=== PATIENT | female | born 1955 | race Caucasian/White ===

== ENCOUNTER 2024-01-27 10:07 | Outpatient (AMB) | payer MEDICARE, OTHER, SELFPAY ==
--- NOTE | 2024-01-27 10:25 | A.SPINEOV_ITS ---
Intake Visit Reasons: spinal stenosis Intake Note: Ms. James is here today c/o right sided sciatica pain that radiates down the right leg. Shoe Reconditioner Required: No Allergies No Known Allergies Allergy (Verified 01/27/24 10:35) Assessment & Plan Assessment & Plan (1) Lumbar stenosis with neurogenic claudication: Code(s): M48.062 - Spinal stenosis, lumbar region with neurogenic claudication Category: Medical Plan Dear colleague Thank you for referring Adeola James to the office today with a chief complaint of right leg pain. HPI: This 68-year-old female developed rather acute right-sided back pain radiating down her right leg in beginning of October. The pain radiates into her right buttock down to the outside of her lower leg and top of her foot. The pain is accompanied by tingling and numbness on the top of the foot and a drop foot. The left side is unaffected. In the beginning she was crying from pain but over time the symptoms have slightly improved. She still uses lidocaine patches and Tylenol. The pain is worse in the morning when she has to use a cane to get going. Standing is actually the best position. She was seen by pain management who have treated her symptoms so far medically. She is currently in physical therapy. PMH: Hypertension, hypothyroid (thyroidectomy), asthma Medications: Hydrochlorothiazide, Synthroid, albuterol p.r.n., Breztri Allergies: NKDA Social history: . Nonsmoker. Physical Exam: Pleasant female. Straight leg raise is negative. There is numbness in the L5 dermatome on the right side. There is a grade 3/5 weakness of the dorsiflexors and extensor hallucis longus on the right side. Radiological Studies: MRI done at [facility] on 08/11/2023 shows a mild L4-5 spondylolisthesis and severe L4-5 spinal stenosis. In addition there are multiple sacral cyst. A dynamic lumbar x-ray obtained today shows a grade 1-2 spondylolisthesis which is stable with flexion-extension. Impression/Plan: This 68-year-old female suffering from a right L5 lumbar radiculopathy with numbness and weakness. She denies axial low back pain and the imaging has a low suspicion for significant instability. Therefore I think a right L4-5 laminotomy is the appropriate surgical approach to decompress the L5 nerve root. I do not think that a fusion is indicated at this time. She wants to proceed and she is scheduled for 03/08/2024. Thank you for allowing me to participate in your patients care. total time spent was 50 minutes in counseling ,coordination of plan, personal review of imaging, surgical decision making and subsequent plan Ezekiel James MD, PhD Sp[facility] Trained Neurosurgeon Director, [facility] [place] [facility] Orders: Orders XR lumbar spine 4V min Today M48.062 - Spinal stenosis, lumbar region with neurogenic claudication Coding Level of Care Code New Pt Level 4 (26019) Diagnoses Lumbar stenosis with neurogenic claudication M48.062
== END 2024-01-27 11:29 | disposition home or self-care (01) ==
PROVIDERS: PCP Registered Nurse; Visit Provider Neurological Surgery
DX: M48.062 Spinal stenosis, lumbar region with neurogenic claudication (principal)
CPT/HCPCS: 99204

== ENCOUNTER 2024-01-27 10:07 | Outpatient (REF) | payer MEDICARE, OTHER, SELFPAY ==
--- NOTE | ~2024-01-27 | XR_ITS ---
EXAMINATION: XR LUMBAR SPINE CLINICAL INFORMATION: Spinal stenosis, lumbar region with neurogenic claudication. COMPARISON: None available. TECHNIQUE: AP and lateral views of the lumbar spine were obtained. Lateral views were obtained in flexion, extension, and neutral positions. FINDINGS: There is 5 mm of anterolisthesis of L4 on L5 which does not appreciably changed with flexion and extension. There is 4 mm of anterolisthesis of L5 on S1 also appears unchanged with flexion and extension. There is significant facet arthropathy at L4-L5 and L5-S1. Vertebral body heights are normal. Cwlv-kx-[id number] degenerative disc disease, more notably at L1-L2, L2-L3, and L4-L5. Mild osteoarthritis in the SI joints. Atherosclerotic calcifications in the abdominal aorta and iliac arteries. XR/XR lumbar spine 4V min IMPRESSION: 1. Grade 1 anterolisthesis of L4 on L5 and L5 on S1 with associated facet arthropathy. No appreciable changes in alignment with flexion and extension. 2. Rodm-pw-[id number] multilevel degenerative disc disease. Electronically signed by: Anthony Ho MD 02/20/2024 06:01 PM EDT
== END 2024-01-27 10:08 | disposition home or self-care (01) ==
LOC: HO.HOSX 10:07
PROVIDERS: PCP Registered Nurse; Visit Provider Neurological Surgery
DX: M48.062 Spinal stenosis, lumbar region with neurogenic claudication (principal)
CPT/HCPCS: 72110; 99202

== ENCOUNTER 2024-03-15 09:10 | Day surgery (SDC) | payer MEDICARE, OTHER, SELFPAY ==
[2024-02-29 09:40] VITALS: BMI 26.9
[2024-03-15] MEDS: methocarbamoL 750 MG TABLET PO (09:45)
[2024-03-15] MEDS: Gabapentin 300 MG CAPSULE PO (09:45)
--- NOTE | 2024-03-15 10:35 | MHC.SHP ---
Pre-Procedural Eval Section A - 24 Hr Update-Section A only Date of Service: 03/15/24 The patient is an INPATIENT: No Section B - Complete if H&P > 30 days Chief Complaint: Spinal stenosis, lumbar region with neurogenic Allergies: Allergies Allergy/AdvReac Type Severity Reaction Status Date / Time bee pollen [bee stings] Allergy Severe severe Verified 02/29/24 09:36 localized swelling erythromycin base AdvReac Intermediate Gastrointestinal Verified 02/29/24 09:36 Upset lisinopril AdvReac Intermediate Cough Verified 02/29/24 09:36 Review of Systems Sugical H&P ROS: Negative: Constitution, Cardiovascular, Respiratory, Neurological, Psychiatric, Hem-Onc, Allergic/Immunologic, Gastrointestinal, Genitourinary, Musculoskeletal, Integumentary, Endocrine and Eyes/Ears/Nose/Throat Exam Surgical H&P Exam: Normal: HEENT, Normal: Heart, Normal: Lungs, Normal: Extremities, Normal: Abdomen, Normal: Skin and Normal: Neurological (Awake, alert) Plan Diagnosis/Plan: Unchanged I have reviewed the history and physical and performed a pertinent physical examination on my patient. No changes have occurred unless specified. Right L4-5 laminotomy to decompress the L5 nerve root Time Spent With Patient Time: Total time managing care of this patient today _5___ minutes.
[2024-03-15 10:43] VITALS: BP 157/72; PULSE 80; RESP 18; TEMP 36.8; O2SAT 93; BMI 26.9
--- NOTE | 2024-03-15 11:10 | P.CONAN_ITS ---
Documented by User: Leslee Landis NP 03/13/24 12:31 HPI - Anesthesia Eval Consult details Narrative: 68yo F for Right L4-5 Laminectomy Lumbar Decompression, 03/15/24 Medically optimized per PCP [facility] Active Problems Active Problems: All Active Problems Lumbar stenosis with neurogenic claudication (Acute) Past Medical History Medical History Sensitivity to medication DDD (degenerative disc disease), lumbar RSV (respiratory syncytial virus infection) Hyperlipidemia Pulmonary emphysema Hypothyroid Asthma HTN (hypertension) Back pain Surgical History Surgical History Hx of tubal ligation H/O colonoscopy Hx of knee surgery Hx of thyroidectomy History of loop electrical excision procedure (LEEP) Social History Social History Are you a primary respiratory care instructor to a significant other at home: No Do you presently have visiting nurse or other home services: No Patient Tobacco Use Status: Former Tobacco user Tobacco use type: Cigarette Cigarette Packs Per Day: 1 Cigarettes Per Day: 20.0 Years Smoked: 45 Use of substances other than those prescribed or required for medical reasons: No Have you been hit, kicked, punched, or otherwise hurt by someone within the past year? If so, by whom?: No Spiritual Healthcare Practices: none Tenriism Healthcare Practices: [place] [employer]-Ism Cultural Healthcare Practices: none Are you DNR?: No Advance Directives Information Provided: Yes (advised to bring copy DOS) Advance Directives on File: No Recently lost weight without trying: No Eating poorly because of decreased appetite: No Nutrition Risks: No Nutritional Risk Patient : No FDLMP: n/a Poor oral hygiene: No Meds Allergies Allergy/AdvReac Type Severity Reaction Status Date / Time bee pollen [bee stings] Allergy Severe severe Verified 02/29/24 09:36 localized swelling erythromycin base AdvReac Intermediate Gastrointestinal Verified 02/29/24 09:36 Upset lisinopril AdvReac Intermediate Cough Verified 02/29/24 09:36 Home Medications ?Medication ?Instructions ?Recorded ?Confirmed ?Last Taken ?Type acetaminophen 300 mg-codeine 30 mg 1 tab PO Q6H PRN pain 02/28/24 02/28/24 Unknown History tablet albuterol sulfate 2.5 mg/3 mL 2.5 mg inhalation TID PRN 02/28/24 02/28/24 Unknown History (0.083 %) solution for nebulization Shortness Of Breath Or Wheezing albuterol sulfate 90 mcg/actuation 2 puff inhalation TID PRN 02/28/24 02/28/24 Unknown History aerosol inhaler Shortness Of Breath Or Wheezing budesonide 160 mcg-glycopyr 9 2 inh inhalation BID 02/28/24 02/28/24 Unknown History mcg-formot 4.8 mcg/actuation HFA inhaler (Breztri Aerosphere) epinephrine 0.3 mg/0.3 mL 0.3 mg IM NEEDED anaphylaxis 02/28/24 02/28/24 Unknown History injection, auto-injector hydrochlorothiazide 25 mg tablet 25 mg PO DAILY 02/28/24 02/28/24 Unknown History levothyroxine 112 mcg tablet 112 mcg PO DAILY 02/28/24 02/28/24 Unknown History (Synthroid) Exam Height,Weight and Vital Signs: Height 5 ft 0.5 in Weight 63.503 kg Pertinent Lab Results Pertinent Lab Results: CBC and CMP 02/2024 from outside facility WNL Narrative Narrative: EKG 02/2024 NSR @ [address] abn Assessment and Plan Assessment Anesthesia Assessment: Chart Reviewed Documented by User: Reba Munoz DO 03/15/24 11:12 [facility] Past Medical History Medical History Sensitivity to medication DDD (degenerative disc disease), lumbar RSV (respiratory syncytial virus infection) Hyperlipidemia Pulmonary emphysema Hypothyroid Asthma HTN (hypertension) Back pain Family History Family history of problems with anesthesia: No Surgical History Surgical History Hx of tubal ligation H/O colonoscopy Hx of knee surgery Hx of thyroidectomy History of loop electrical excision procedure (LEEP) History of Problems with Anesthesia: No Social History Social History Are you a primary respiratory care instructor to a significant other at home: No Do you presently have visiting nurse or other home services: No Patient Tobacco Use Status: Former Tobacco user Tobacco use type: Cigarette Cigarette Packs Per Day: 1 Cigarettes Per Day: 20.0 Years Smoked: 45 Use of substances other than those prescribed or required for medical reasons: No Have you been hit, kicked, punched, or otherwise hurt by someone within the past year? If so, by whom?: No Spiritual Healthcare Practices: none Tenriism Healthcare Practices: [place] [employer] Cultural Healthcare Practices: none Are you DNR?: No Advance Directives Information Provided: Yes (advised to bring copy DOS) Advance Directives on File: No Recently lost weight without trying: No Eating poorly because of decreased appetite: No Nutrition Risks: No Nutritional Risk Patient : No FDLMP: n/a Poor oral hygiene: No Meds Allergies Allergy/AdvReac Type Severity Reaction Status Date / Time bee pollen [bee stings] Allergy Severe severe Verified 02/29/24 09:36 localized swelling erythromycin base AdvReac Intermediate Gastrointestinal Verified 02/29/24 09:36 Upset lisinopril AdvReac Intermediate Cough Verified 02/29/24 09:36 Home Medications ?Medication ?Instructions ?Recorded ?Confirmed ?Last Taken ?Type acetaminophen 300 mg-codeine 30 mg 1 tab PO Q6H PRN pain 02/28/24 02/28/24 Unknown History tablet albuterol sulfate 2.5 mg/3 mL 2.5 mg inhalation TID PRN 02/28/24 02/28/24 Unknown History (0.083 %) solution for nebulization Shortness Of Breath Or Wheezing albuterol sulfate 90 mcg/actuation 2 puff inhalation TID PRN 02/28/24 02/28/24 Unknown History aerosol inhaler Shortness Of Breath Or Wheezing budesonide 160 mcg-glycopyr 9 2 inh inhalation BID 02/28/24 02/28/24 Unknown History mcg-formot 4.8 mcg/actuation HFA inhaler (Breztri Aerosphere) epinephrine 0.3 mg/0.3 mL 0.3 mg IM NEEDED anaphylaxis 02/28/24 02/28/24 Unknown History injection, auto-injector hydrochlorothiazide 25 mg tablet 25 mg PO DAILY 02/28/24 02/28/24 Unknown History levothyroxine 112 mcg tablet 112 mcg PO DAILY 02/28/24 02/28/24 Unknown History (Synthroid) Exam Exam Date and Time: 03/15/24 1110 Height,Weight and Vital Signs: Height 5 ft 0.5 in Weight 63.503 kg Vital Signs Temperature 98.3 F 03/15/24 10:43 Pulse Rate 80 03/15/24 10:43 Respiratory Rate 18 03/15/24 10:43 Blood Pressure 157/72 H 03/15/24 10:43 Pulse Oximetry 93 03/15/24 10:43 Oxygen Delivery Method Room Air 03/15/24 10:43 Temperature 98.3 F 03/15/24 10:43 Pulse Rate 80 03/15/24 10:43 Respiratory Rate 18 03/15/24 10:43 Blood Pressure 157/72 H 03/15/24 10:43 Pulse Oximetry 93 03/15/24 10:43 Oxygen Delivery Method Room Air 03/15/24 10:43 Airway Mallampati Class: II TM Dist: >3cm Neck ROM: Full Loose/Missing/Broken Teeth: No (patient denies any loose or broken teeth) Heart: S1S2 Lungs: CTAB Assessment and Plan Assessment Anesthesia Assessment: Anesthesia Plan Discussed and Chart Reviewed Final Anesthetic Review Family History of Problems with Anesthesia: No History of Problems with Anesthesia: No NPO: Yes ASA Class: II Final Preanesthetic Review: No Changes in Pt Med Stat, Meds/Allgs Chart Rev iewed, Consent Obtained/Reviewed and Anes Risks/Benef Reviewed Patient Risk: Low Procedure Risk: Intermediate Anesthetic Plan Anesthetic Plan: GA and Agree w/ Assess. and Plan Disposition: Standard PACU
--- NOTE | 2024-03-15 12:26 | W.PM.OPN ---
Operative Note Operative Note Date of Service: 03/15/24 Narrative: Preoperative Diagnosis: Right L4-5 spinal stenosis/lateral recess stenosis Operation: Right L4-5 Laminotomy, Partial facetectomy to decompress the L5 nerve root with use of microscope Consent Informed Consent was obtained for this operation. I have explained the nature, purpose and benefits of the operation. I have discussed the risks and benefit of the operation including possible complications or adverse events with patient/family. Alternative(s) were discussed with the patient with their relative benefits and risks as well as the consequences of not accepting the operation were included in obtaining consent. Surgeon: SEBASTIEN LEÓN MD, PHD Procedure Assisted By: Tony Lacy Description of Procedure This patient is suffering from a right lumbar radiculopathy. An MRI shows a grade 1 L4-5 spondylolisthesis, lateral recess stenosis compressing the right L5 nerve root.. The patient was offered a decompression. The procedure complications were explained. The patient was consented. The patient was brought to the operating room and endotracheally intubated. The patient was turned in prone position on the Ray frame. Prep and drape was done followed by timeout. The Physician dental hygiene administrative assistant provided access. A mid lumbar incision was made followed by release of the paravertebral muscle on the right side to expose the L4-5 lamina and facet joints. An intraoperative x-ray was obtained to confirm the correct level. The microscope was brought in. I took over the procedure. The high-speed drill was used to do a right L4-5 laminotomy until flavum ligament was reached. A #2 Kerrison was used to expand the laminotomy near flush to the pedicles and to include a partial facetectomy. The flavum ligament was opened and resected with a #3 Kerrison to decompress the underlying thecal sac. The flavum ligament was removed to decompress the lateral recess and the exiting L5 nerve root. A long nerve hook could be easily passed along the medial side of the pedicles as a sign of adequate decompression. The microscope was removed. Hemostasis was done. The physician dental hygiene administrative assistant close the Incision in 2 layers. Steri-Strips were used to approximate incision. An OpSite with Tegaderm was used to cover the incision. All sponge needle counts were correct. Patient was extubated and transported in stable is to recovery room. Anesthesia: General Estimated Blood Loss (ml): 20 mL Complications: None Duration of Surgery: Under 60 Minutes Postoperative Plan: Discharge to home
--- NOTE | 2024-03-15 12:38 | PM.DS ---
DS: Providers Provider Date of Service: 03/15/24 Primary care physician: Cong Chacon NP DS: Summary Time Attestation Discharge Coordination Time (in mins): 15 Quality: Safe Use of Opioids Does Pt have an Active Cancer Diagnosis on the Problem List?: No Quality: Stroke Does the patient have a stroke diagnosis?: No Physical Exam Vital Signs: Vital Signs: Last Vital Signs Temp 98.3 F 03/15/24 10:43 Pulse 80 03/15/24 10:43 Resp 18 03/15/24 10:43 BP 157/72 H 03/15/24 10:43 Pulse Ox 93 03/15/24 10:43 O2 Del Method Room Air 03/15/24 10:43 BMI result Body Mass Index 26.9 Discharge Plan Discharge Patient Disposition: Home, Self-Care Referrals: Cong Chacon NP [Primary Care Provider] - 1 Week Discharge Medications: New oxycodone 5 mg tablet 5 mg PO Q6H PRN (Reason: severe pain (scale score 7-10)) Qty: 30 0RF Rx Instructions: Partial Fill upon patient request. Continued albuterol sulfate 2.5 mg /3 mL (0.083 %) solution for nebulization 2.5 mg inhalation TID PRN (Reason: Shortness Of Breath Or Wheezing) acetaminophen-codeine 300-30 mg tablet 1 tab PO Q6H PRN (Reason: pain) hydrochlorothiazide 25 mg tablet 25 mg PO DAILY epinephrine 0.3 mg/0.3 mL auto-injector 0.3 mg IM NEEDED albuterol sulfate 90 mcg/actuation HFA aerosol inhaler 2 puff INHALATION TID PRN (Reason: Shortness Of Breath Or Wheezing) levothyroxine [Synthroid] 112 mcg tablet 112 mcg PO DAILY Breztri Aerosphere 160-9-4.8 mcg/actuation HFA aerosol inhaler 2 inh inhalation BID Discharge Orders: Discharge Order (Routine); Ordered 03/15/24 Ordered By: Pedro Eugene Diet: Advance to usual diet Activity on Discharge: As tolerated Activity Restrictions/Additional Instructions: After your spinal surgery we ask you to observe the following restrictions/guidelines: Activity: It is normal to feel some discomfort as you increase your activity, but that will improve with time. We ask you avoid heavy lifting or acitivities that cause pain. As a general rule, 8lbs is a safe limit for lifting right after surgery. Walk as much as you feel comfortable but not to exhaustion. You will feel extra tired the first few days after surgery. Stay well hydrated. It is OK to walk up and down stairs You may return to driving when you are off narcotics (such as vicodin, oxycodone, dilaudid, etc), and you are back to normal functional capacity. If you have any concerns please check with office before driving. Return to work is specific to each patient and each surgery, so please speak with your doctor/PA at first follow up. Please bring paperwork such as FMLA at that time if you need it filled out. Medications: We recommend you take 1,000mg Tylenol every 8 hours for the first few weeks after surgery, if you do not have any liver issues and can tolerate this medication. Do not exceed 4,000mg daily. We will give you a short supply of narcotics after surgery (usually one weeks worth). If you need more please call the office but do not use more than prescribed. You will need to give our office 48 hours notice if you need narcotics refilled and we do not fill narcotics on weekends or evenings. If you are on a narcotic, it is a good idea to take a stool softener such as colace or senna to avoid constipation If you take blood thinner such as aspirin, Plavix, Coumadin, Effient, Eliquis etc for conditions such as Afib, DVT, Pulmonary embolus, coronary disease, stents etc please speak with your surgeon about specific details as to when you can resume these medications. Follow up: Please call the office, , after surgery to arrange a 3 week follow up for wound check. Wound Care: You may remove your dressing on the first day after surgery. ?You may ?leave open to air. Please do not remove the steri strips underneath. they will fall off on their own in one week. IT IS NORMAL FOR THE WOUND TO OOZE OR BE BLOODY FOR A FEW DAYS AFTER SURGERY. ?IF THIS HAPPENS JUST PLACE NEW DRESSING OVER IT TO AVOID STAINING CLOTHES. You may shower on post op day # 1 We ask that you do not let the water soak the wound. If it does get wet, just towel dry lightly. Please do not scrub your incision or place any type of chemical/ointment on the wound. No tub baths, pools or jacuzzis for one month. If you have any leaking or redness from your wound, or fevers, please call the office. Print Language: Filipino
[2024-03-15 12:45] VITALS: BP 159/63; PULSE 85; RESP 12; TEMP 36.1; O2SAT 97
[2024-03-15 12:50] VITALS: BP 144/56; PULSE 90; RESP 16; O2SAT 98
[2024-03-15 12:55] VITALS: BP 169/70; PULSE 86; RESP 17; O2SAT 95
[2024-03-15 13:00] VITALS: BP 155/53; PULSE 89; RESP 17; O2SAT 96
[2024-03-15 13:15] VITALS: BP 166/89; PULSE 89; RESP 18; TEMP 37.1; O2SAT 99
[2024-03-15] MEDS: oxyCODONE HCl Immed Release 5 MG TABLET PO (13:33)
== END 2024-03-15 14:08 | disposition home or self-care (01) ==
PROVIDERS: PCP Registered Nurse; Visit Provider Neurological Surgery
PROC: (CPT 63047; principal; 2024-03-15 12:30)
DX: M48.062 Spinal stenosis, lumbar region with neurogenic claudication (principal); M21.371 Foot drop, right foot; R20.0 Anesthesia of skin; R20.2 Paresthesia of skin; I10 Essential (primary) hypertension; E78.5 Hyperlipidemia, unspecified; R73.9 Hyperglycemia, unspecified; J43.9 Emphysema, unspecified; J45.909 Unspecified asthma, uncomplicated; Z79.899 Other long term (current) drug therapy; Z87.891 Personal history of nicotine dependence; Z98.890 Other specified postprocedural states
CPT/HCPCS: 63047; J0131; J0690; J1100; J2003; J2371; J2405; J2704; J3010

== ENCOUNTER → 2024-03-15 09:10 | Outpatient (BNV) | payer MEDICARE, OTHER, SELFPAY | PROVIDERS: PCP Registered Nurse; Visit Provider Neurological Surgery | DX: M48.062 Spinal stenosis, lumbar region with neurogenic claudication (principal) | CPT/HCPCS: 63047; 99499 ==

== ENCOUNTER 2024-04-05 11:15 | Outpatient (AMB) | payer MEDICARE, OTHER, SELFPAY ==
--- NOTE | 2024-04-05 11:20 | A.SPINEOV_ITS ---
Intake Visit Reasons: 1st post op Intake Note: Mrs. James is here today for her 1st post-op Fluid Power Mechanic Required: No Allergies bee pollen [bee stings] Allergy (Severe, Verified 02/29/24 09:36) severe localized swelling erythromycin base Adverse Reaction (Intermediate, Verified 02/29/24 09:36) Gastrointestinal Upset lisinopril Adverse Reaction (Intermediate, Verified 02/29/24 09:36) Cough Assessment & Plan Assessment & Plan (1) Lumbar stenosis with neurogenic claudication: Code(s): M48.062 - Spinal stenosis, lumbar region with neurogenic claudication Category: Medical Plan Procedure: Right L4-5 Laminotomy, Partial facetectomy to decompress the L5 nerve root Prudence comes in today for her 1st postoperative visit. To recap she was initially seen in clinic for acute right-sided back pain radiating down her right leg. She reports complete resolution of her pain since her surgery. She is very satisfied overall with the operation. She reports no issues with ambulation, lifting, or pain at this time. We discussed the postoperative healing course, and I answered all of her questions. No new neurological deficits. Patient is able to ambulate well, rises from a seated position without difficulty. Incision sites are closed, well healing, with no signs of drainage. The patient lives relatively far away and she is in no pain at this time. She feels like her problem has been relieved since the surgery. Therefore I asked her to follow up on an as-needed basis but will not be scheduling any routine appointments. Pedro James MD,PhD [facility] Coding Level of Care Code Global (11465) Diagnoses Lumbar stenosis with neurogenic claudication M48.062
== END 2024-04-05 11:32 | disposition home or self-care (01) ==
LOC: HO.HNS 11:15
PROVIDERS: PCP Registered Nurse; Visit Provider Physician Assistant
DX: M48.062 Spinal stenosis, lumbar region with neurogenic claudication (principal)
CPT/HCPCS: 99024

== ENCOUNTER → 2024-04-05 11:15 | Outpatient (BNVA) | payer MEDICARE, OTHER, SELFPAY | PROVIDERS: PCP Registered Nurse; Visit Provider Physician Assistant | DX: M48.062 Spinal stenosis, lumbar region with neurogenic claudication (principal) | CPT/HCPCS: 99212 ==